=== PATIENT | female | born 1960 | race Caucasian/White ===

== ENCOUNTER 2019-06-09 13:38 | Emergency (ER) | payer OTHER ==
[2019-06-09] MEDS ORDERED: Ketorolac 30 MG/ML SDV IVPUSH ONE (14:16)
[2019-06-09] MEDS ORDERED: Lactated Ringers 1,000 ML IV ONE (14:16)
[2019-06-09] MEDS ORDERED: diphenhydrAMINE 50 MG/ML SDV IVPUSH ONE (14:17)
[2019-06-09] MEDS ORDERED: Prochlorperazine 10 MG/2 ML SDV IVPUSH ONE (14:17)
--- NOTE | 2019-06-09 14:27 | EDM.PDOC ---
ED HPI GENERAL MEDICAL PROBLEM - General Chief Complaint: Genitourinary Problem Stated Complaint: MIGRAINE Time Seen by Provider: 06/09/19 14:15 Source of Information: Reports: Patient, Family, Old Records, RN History Limitations: Reports: No Limitations - History of Present Illness INITIAL COMMENTS - FREE TEXT/NARRATIVE: 58 yo female had an abnormal UA in the clinic recently and was given an Rx for MacroBid pending the culture results. The culture eventually grew only mixed meseret and she never took the antibiotic. She tried treating the infection "wholistically", but thinks she may be getting worse. Had chills at home, but when they checked her temperature it was normal. Also reports having a migraine currently, but does not want to be treated for this. Onset: Gradual Duration: Day(s):, Getting Worse Location: Reports: Pelvis (bladder/urethra) Quality: Reports: Burning Severity: Mild Improves with: Reports: None Worsens with: Reports: Other (time) Context: Reports: Other (See HPI) Associated Symptoms: Reports: Fever/Chills (no fever), Nausea/Vomiting (due to migraine). Denies: Rash Treatments IOS ARCHITECT: Reports: Other (see below) (none) - Related Data Allergies Allergy/AdvReac Type Severity Reaction Status Date / Time No Known Allergies Allergy Verified 06/09/19 13:57 Home Meds: Home Meds Doxepin [SINEquan] 1 tab PO DAILY 06/09/19 [History] Past Medical History Respiratory History: Reports: Pneumothorax Neurological History: Reports: Migraines - Past Surgical History Endocrine Surgical History: Reports: Thyroidectomy Social & Family History - Tobacco Use Smoking Status *Q: Never Smoker ED ROS GENERAL - Review of Systems Review Of Systems: See Below Constitutional: Reports: Chills, Malaise. Denies: Fever HEENT: Reports: No Symptoms Respiratory: Reports: No Symptoms Cardiovascular: Reports: No Symptoms GI/Abdominal: Reports: Nausea, Vomiting. Denies: Abdominal Pain, Anorexia, Black Stool, Bloody Stool, Constipation, Diarrhea, Decreased Appetite, Distension, Flatus, Hematemesis, Hematochezia, Melena : Reports: Dysuria, Frequency, Urgency. Denies: Discharge, Flank Pain, Hematuria, Pain, Urinary Retention Musculoskeletal: Reports: No Symptoms Skin: Reports: No Symptoms Neurological: Reports: Headache. Denies: Numbness, Trouble Speaking, Change in Speech - Physical Exam Exam: See Below Exam Limited By: No Limitations General Appearance: Alert, WD/WN, No Apparent Distress Eye Exam: Bilateral Eye: Normal Inspection Ears: Normal External Exam, Normal Canal, Hearing Grossly Normal, Normal TMs Nose: Normal Inspection, No Blood Throat/Mouth: Normal Inspection, Normal Lips, Normal Oropharynx, Normal Voice, No Airway Compromise Head Exam: Atraumatic, Normocephalic Neck: Normal Inspection, Supple Respiratory/Chest: No Respiratory Distress, Lungs Clear, Normal Breath Sounds, No Accessory Muscle Use Cardiovascular: Regular Rate, Rhythm, No Edema GI/Abdominal: Normal Bowel Sounds, Soft, Non-Tender, No Distention Back Exam: Normal Inspection. No: CVA Tenderness (R), CVA Tenderness (L) Extremities: Normal Inspection, Normal Range of Motion, Non-Tender, No Pedal Edema Psychiatric: Normal Mood, Flat Affect Skin Exam: Warm, Dry, Intact, Normal Color, No Rash Course - Vital Signs Text/Narrative:: Declined antibiotic in ER, will fill and take her Macrodantin. Declined tx for her migraine. Last Recorded V/S: Last Vital Signs Temp 35.9 C 06/09/19 14:39 Pulse 84 06/09/19 14:07 Resp 16 06/09/19 14:07 BP 117/67 06/09/19 14:07 Pulse Ox 96 06/09/19 14:07 - Orders/Labs/Meds Orders: Active Orders 24 hr Category Date Time Status CULTURE URINE [RM] Stat Lab 06/09/19 14:38 Ordered Labs: Laboratory Tests 06/09/19 Range/Units 14:20 Urine Color Yellow (YELLOW) Urine Appearance Turbid A (CLEAR) Urine pH 7.0 (5.0-8.0) Ur Specific [place] 1.015 (1.008-1.030) Urine Protein Trace H (NEGATIVE) mg/dL Urine Glucose (UA) Normal (NEGATIVE) mg/dL Urine Ketones 15 H (NEGATIVE) mg/dL Urine Occult Blood Small (NEGATIVE) Urine Nitrite Positive H (NEGATIVE) Urine Bilirubin Negative (NEGATIVE) Urine Urobilinogen 0.2 (0.2-1.0) EU/dL Ur Leukocyte Esterase Large (NEGATIVE) Urine RBC 0-5 (0-5) Urine WBC Packed H (0-5) Ur Epithelial Cells Not seen Amorphous Sediment Not seen Urine Bacteria Many Urine Mucus Not seen Meds: Medications Discontinued Medications Generic Name Dose Route Start Last Admin Trade Name Rachel PRN Reason Stop Dose Admin Diphenhydramine HCl 25 mg 06/09/19 14:17 06/09/19 14:35 Benadryl IVPUSH 06/09/19 14:18 Not Given ONETIME ONE Lactated Ringer's 1,000 mls @ 1,000 mls/hr 06/09/19 14:16 06/09/19 14:35 Ringers, Lactated IV 06/09/19 15:15 Not Given BOLUS ONE Ketorolac Tromethamine 30 mg 06/09/19 14:16 06/09/19 14:35 Toradol IVPUSH 06/09/19 14:17 Not Given ONETIME ONE Prochlorperazine Edisylate 10 mg 06/09/19 14:17 06/09/19 14:35 Compazine IVPUSH 06/09/19 14:18 Not Given ONETIME ONE Departure - Departure Time of Disposition: 14:45 Disposition: Home, Self-Care 01 Condition: Fair Clinical Impression: Nausea UTI (urinary tract infection) Qualifiers: Urinary tract infection type: acute cystitis Hematuria presence: without hematuria Qualified Code(s): N30.00 - Acute cystitis without hematuria Migraine Qualifiers: Migraine type: chronic without aura Status migrainosus presence: without status migrainosus Intractability: not intractable Qualified Code(s): G43.709 - Chronic migraine without aura, not intractable, without status migrainosus - Discharge Information *PRESCRIPTION DRUG MONITORING PROGRAM REVIEWED*: No *COPY OF PRESCRIPTION DRUG MONITORING REPORT IN PATIENT MARILIA: No Instructions: Urinary Tract Infection, Adult, [id number] Referrals: Soraida Farias MD [Primary Care Provider] - Forms: ED Department Discharge Additional Instructions: Take your Macrobid every 12 hrs until gone. Drink ample fluids. Return for fever. You can use ibuprofen or acetaminophen as needed. Your culture will take 2-3 days. - My Orders Last 24 Hours: My Active Orders 06/09/19 14:38 CULTURE URINE [RM] Stat - Assessment/Plan Last 24 Hours: My Active Orders 06/09/19 14:38 CULTURE URINE [RM] Stat
== END 2019-06-09 14:56 | disposition home or self-care (01) ==
LOC: JP.ED 13:38
DX: N30.00 Acute cystitis without hematuria (principal); G43.709 Chronic migraine without aura, not intractable, without status migrainosus; Z79.899 Other long term (current) drug therapy
CPT/HCPCS: 81001; 87086; 87088; 87186; 99284